=== PATIENT | female | born 1970 | race Two or more races ===

== ENCOUNTER 2019-07-16 16:21 | Emergency (ER) | payer SELFPAY ==
[~2019-07-16] VITALS: Ht 162.6 cm; Wt 49.9 kg
[2019-07-16 16:46] VITALS: BP 141/84; Ht 162.6 cm; Wt 49.9 kg
== END 2019-07-16 19:41 | disposition home or self-care (01) ==
LOC: ED 16:21
DX: S93.402A Sprain of unspecified ligament of left ankle, initial encounter (principal); Z87.442 Personal history of urinary calculi; X58.XXXA Exposure to other specified factors, initial encounter; Y93.B9 Activity, other involving muscle strengthening exercises; Y92.39 Other specified sports and athletic area as the place of occurrence of the external cause; Y99.8 Other external cause status